=== PATIENT | male | born 1945 | race Caucasian/White ===

== ENCOUNTER 2023-06-15 10:47 | Outpatient (RCR) | payer MEDICARE, SELFPAY | END 2023-06-15 23:59 | disposition home or self-care (01) | LOC: RPT 10:47 | PROVIDERS: ATTENDING PHYSICIAN Orthopaedic Surgery; FAMILY PHYSICIAN Family Medicine | DX: M48.07 Spinal stenosis, lumbosacral region (principal); Z73.6 Limitation of activities due to disability; M25.551 Pain in right hip; Z96.641 Presence of right artificial hip joint | CPT/HCPCS: 97110; 97140; 97162 ==

== ENCOUNTER 2023-06-29 09:54 | Outpatient (RCR) | payer MEDICARE, SELFPAY | END 2023-06-29 23:59 | disposition home or self-care (01) | LOC: RPT 09:54 | PROVIDERS: ATTENDING PHYSICIAN Orthopaedic Surgery; FAMILY PHYSICIAN Family Medicine | DX: M48.07 Spinal stenosis, lumbosacral region (principal); Z73.6 Limitation of activities due to disability; M25.551 Pain in right hip; Z96.641 Presence of right artificial hip joint | CPT/HCPCS: 97010; 97110 ==

== ENCOUNTER → 2023-10-04 18:57 | Outpatient (REF) | payer MEDICARE, SELFPAY | LOC: MRI 18:57 | PROVIDERS: ATTENDING PHYSICIAN Orthopaedic Surgery; FAMILY PHYSICIAN Family Medicine | DX: Z98.1 Arthrodesis status (principal) | CPT/HCPCS: 72158; A9575 ==

== ENCOUNTER → 2024-02-07 07:23 | Outpatient (REF) | payer MEDICARE, SELFPAY | LOC: RAD 07:23 | PROVIDERS: ATTENDING PHYSICIAN Internal Medicine Cardiovascular Disease; FAMILY PHYSICIAN Family Medicine | DX: I65.23 Occlusion and stenosis of bilateral carotid arteries (principal) | CPT/HCPCS: 93880 ==

== ENCOUNTER 2024-05-02 06:19 | Day surgery (SDC) | payer MEDICARE, SELFPAY | END 2024-05-02 09:43 | disposition home or self-care (01) | LOC: GI 06:19 | PROVIDERS: ATTENDING PHYSICIAN Internal Medicine Gastroenterology | DX: K29.70 Gastritis, unspecified, without bleeding (principal); K22.2 Esophageal obstruction; K44.9 Diaphragmatic hernia without obstruction or gangrene; R13.10 Dysphagia, unspecified | CPT/HCPCS: 43249; 43239; 88305; 88342 ==

== ENCOUNTER → 2024-11-20 12:14 | Outpatient (REF) | payer MEDICARE, SELFPAY | LOC: MRI 12:14 | PROVIDERS: ATTENDING PHYSICIAN Specialist; FAMILY PHYSICIAN Family Medicine | DX: M25.562 Pain in left knee (principal) | CPT/HCPCS: 73721 ==

== ENCOUNTER 2025-01-09 10:01 | Outpatient (RCR) | payer MEDICARE, SELFPAY | END 2025-01-09 23:59 | disposition home or self-care (01) | LOC: RPT 10:01 | PROVIDERS: ATTENDING PHYSICIAN Specialist; FAMILY PHYSICIAN Family Medicine | DX: M17.11 Unilateral primary osteoarthritis, right knee (principal); M25.561 Pain in right knee; Z73.6 Limitation of activities due to disability; M62.81 Muscle weakness (generalized) | CPT/HCPCS: 97110; 97112; 97162; 97530 ==

== ENCOUNTER 2025-02-07 10:01 | Outpatient (RCR) | payer MEDICARE, SELFPAY | END 2025-02-07 23:59 | disposition home or self-care (01) | LOC: RPT 10:01 | PROVIDERS: ATTENDING PHYSICIAN Specialist; FAMILY PHYSICIAN Family Medicine | DX: M17.11 Unilateral primary osteoarthritis, right knee (principal); M25.561 Pain in right knee; Z73.6 Limitation of activities due to disability; M62.81 Muscle weakness (generalized); R26.89 Other abnormalities of gait and mobility | CPT/HCPCS: 97110; 97112; 97530 ==

== ENCOUNTER 2025-04-09 06:48 | Outpatient (RCR) | payer MEDICARE, SELFPAY | END 2025-04-09 23:59 | disposition home or self-care (01) | LOC: ROT 06:48 | PROVIDERS: ATTENDING PHYSICIAN Orthopaedic Surgery Hand Surgery; FAMILY PHYSICIAN Family Medicine | DX: M65.332 Trigger finger, left middle finger (principal); Z73.6 Limitation of activities due to disability | CPT/HCPCS: 97535 ==